=== PATIENT | male | born 1940 | race Caucasian/White ===

== ENCOUNTER → 2016-12-06 | Outpatient (CLI) | payer OTHER ==
[~2016-12-06] MED LIST: ASPI81 PO; FLOV44AE IN; LEVO75TA42 PO; LISI-363 PO; LORA10TA PO; PRIL20CA PO; VITATAB25 PO
[2016-12-06 07:54] LABS: BLOOD GAS BASE EXCESS -2.2 mmol/L (-2-2); BLOOD GAS CARBOXYHEMOGLOBIN 1.5 % (0-4); BLOOD GAS HCO3 22 mmol/L (22-26); BLOOD GAS O2 HGB SATURATION 96 % (90-100); BLOOD GAS PCO2 35 mmHG (38-42); BLOOD GAS PO2 89 mmHG (61-120); BLOOD GAS TOTAL HGB 14.8 G/DL (12.0-16.0); CRITICAL VALUE NO; OXYGEN DEVICE RA; TEMP CORR TO 98.6
[2016-12-06 07:55] LABS: DRAW SITE LT RADIAL; NUMBER OF ARTERIAL PUNCTURES 1; STAT NO; ULNAR PULSE Y
--- NOTE | 2016-12-07 10:48 | RSPPFT ---
DATE OF PROCEDURE: 02/05/17 COMMENTS: Spirometry shows FVC of 3.6 at 109% of predicted, FEV1 of 2.9 at 111%, FEV1/FVC ratio is normal. Flow is normal at FEF 25, FEF 50, FEF 75 and FEF 25-75. There is no response after bronchodilator treatment. Lung volumes show residual volume is mildly decreased. TLC is mildly decreased. Diffusion capacity is mildly decreased. Flow volume loop indicates a normal pattern. Room air arterial blood gases show pH of 7.4, PCO2 of 35, PO2 of 89, BiCarb of 22 and Saturation at 96%. IMPRESSION: 1. Normal spirometry. 2 No response after bronchodilator treatment. 3. Lung volumes are slightly decreased. 4. Mild decrease in diffusion capacity. 5. Blood gases show normal oxygenation on room air.
== END ==
LOC: PHRSP 07:22
PROVIDERS: ATTEND Specialist
DX: R06.00 Dyspnea, unspecified (principal)
CPT/HCPCS: 36600; 82805; 94060; 94726; 94729

== ENCOUNTER 2017-07-23 10:51 | Emergency (ER) | payer OTHER ==
[~2017-07-23] VITALS: Ht 175.3 cm; Wt 85.0 kg
[2017-07-23 10:55] VITALS: BP 136/78; PULSE 91; RESP 16; TEMP 97.7; O2SAT 96
[2017-07-23] MEDS ORDERED: SODIUM CHLOR 0.9% 1000 ML INJ 1,000 ML IV SCH (11:07)
[2017-07-23 11:10] VITALS: O2SAT 98
--- NOTE | 2017-07-23 11:11 | PD ---
HPI Chief Complaint: Abdominal Pain Time Seen by Provider: 11:02 Travel History International Travel<30 days: No Contact w/Intl Traveler<30days: No Traveled to known affect area: No History of Present Illness HPI 77-year-old male complains of left low quadrant abdominal pain. Patient states the symptoms started yesterday. Patient stated the pain is cramping pain localized to left lower quadrant of the abdomen. Patient states that the pain occasionally radiates to the left low back area. Patient denies any pain radiation. Patient denies any nausea vomiting diarrhea. Patient denied dysuria or frequency. Patient denies any fever chills. Patient has history of diverticulitis in the past. Patient status post partial colectomy secondary to diverticulitis. PFSH Past Medical History Arthritis: Yes Autoimmune Disease: No Cancer: No Cardiovascular Problems: Yes Diabetes: No Diminished Hearing: No Diverticulitis: Yes Endocrine: Yes GERD: Yes Genitourinary: No Hepatitis: No Hypertension: Yes Immune Disorder: No Musculoskeletal: Yes Neurologic: No Psychiatric: No Respiratory: No Immunizations Current: Yes Thyroid Disease: Yes Past Surgical History Abdominal Surgery: Yes (colon resection) Genitourinary Surgery: Yes (VASECTOMY) Joint Replacement: No Oral Surgery: Yes (T & A) Pacemaker: No Tonsillectomy: Yes Social History Alcohol Use: Yes (SOCIAL) Tobacco Use: No Substance Use: No Allergies-Medications (Allergen,Severity, Reaction): Coded Allergies: penicillin G (Verified Allergy, Severe, UNSURE, 07/23/17) levofloxacin (Verified Allergy, Mild, ITCHING, 07/23/17) benzonatate (Verified Allergy, Unknown, 07/23/17) cortisone (Verified Allergy, Unknown, flushing, 07/23/17) Reported Meds & Prescriptions Reported Meds & Active Scripts Active Reported Pantoprazole (Pantoprazole Sodium) 40 Mg Tab 40 Mg PO DAILY Aspirin Low Dose (Aspirin) 81 Mg Chew 81 Mg CHEW DAILY Lisinopril 30 Mg Tab 30 Mg PO DAILY Levoxyl (Levothyroxine Sodium) 75 Mcg Tab 75 Mcg PO DAILY Review of Systems General / Constitutional: No: Fever Eyes: No: Visual changes HENT: No: Headaches Cardiovascular: No: Chest Pain or Discomfort Respiratory: No: Shortness of Breath Gastrointestinal: Positive: Abdominal Pain Genitourinary: No: Dysuria Musculoskeletal: No: Pain Skin: No Rash Neurologic: No: Weakness Psychiatric: No: Depression Endocrine: No: Polydipsia Hematologic/Lymphatic: No: Easy Bruising Physical Exam Narrative GENERAL: Well-nourished, well-developed patient. SKIN: Focused skin assessment warm/dry. HEAD: Normocephalic. EYES: No scleral icterus. No injection or drainage. NECK: Supple, trachea midline. No JVD or lymphadenopathy. CARDIOVASCULAR: Regular rate and rhythm without murmurs, gallops, or rubs. RESPIRATORY: Breath sounds equal bilaterally. No accessory muscle use. GASTROINTESTINAL: Abdomen soft, nondistended. Patient has moderate tenderness on palpation left low quadrant of the abdomen. No rebound tenderness. No mass. MUSCULOSKELETAL: No cyanosis, or edema. BACK: Nontender without obvious deformity. No CVA tenderness. Neurologic exam normal. Data Data Last Documented VS Vital Signs Date Time Temp Pulse Resp B/P (MAP) Pulse Ox O2 Delivery O2 Flow Rate FiO2 07/23/17 12:22 72 16 152/76 (101) 98 Room Air 07/23/17 10:55 97.7 Orders Orders Complete Blood Count With Diff (07/23/17 11:07) Comprehensive Metabolic Panel (07/23/17 11:07) Lipase (07/23/17 11:07) Prothrombin Time / Inr (Pt) (07/23/17 11:07) Act Partial Throm Time (Ptt) (07/23/17 11:07) Urinalysis - C+S If Indicated (07/23/17 11:07) Ct Abd/Pel W Iv Contrast(Rout) (07/23/17 11:07) Iv Access Insert/Monitor (07/23/17 11:07) Ecg Monitoring (07/23/17 11:07) Oximetry (07/23/17 11:07) Ondansetron Inj (Zofran Inj) (07/23/17 11:15) Sodium Chlor 0.9% 1000 Ml Inj (Ns 1000 M (07/23/17 11:07) Sodium Chloride 0.9% Flush (Ns Flush) (07/23/17 11:15) Morphine Inj (Morphine Inj) (07/23/17 11:15) Iohexol 350 Inj (Omnipaque 350 Inj) (07/23/17 12:19) Labs Laboratory Tests Test 07/23/17 11:15 07/23/17 12:00 White Blood Count 7.1 TH/MM3 Red Blood Count 4.97 MIL/MM3 Hemoglobin 14.3 GM/DL Hematocrit 43.8 % Mean Corpuscular Volume 88.1 FL Mean Corpuscular Hemoglobin 28.8 PG Mean Corpuscular Hemoglobin Concent 32.7 % Red Cell Distribution Width 13.3 % Platelet Count 251 TH/MM3 Mean Platelet Volume 7.8 FL Neutrophils (%) (Auto) 58.7 % Lymphocytes (%) (Auto) 22.6 % Monocytes (%) (Auto) 10.7 % Eosinophils (%) (Auto) 7.1 % Basophils (%) (Auto) 0.9 % Neutrophils # (Auto) 4.1 TH/MM3 Lymphocytes # (Auto) 1.6 TH/MM3 Monocytes # (Auto) 0.8 TH/MM3 Eosinophils # (Auto) 0.5 TH/MM3 Basophils # (Auto) 0.1 TH/MM3 CBC Comment DIFF FINAL Differential Comment Prothrombin Time 10.8 SEC Prothromb Time International Ratio 1.1 RATIO Activated Partial Thromboplast Time 26.8 SEC Blood Urea Nitrogen 15 MG/DL Creatinine 1.00 MG/DL Random Glucose 111 MG/DL Total Protein 7.5 GM/DL Albumin 3.5 GM/DL Calcium Level 8.8 MG/DL Alkaline Phosphatase 82 U/L Aspartate Amino Transf (AST/SGOT) 20 U/L Alanine Aminotransferase (ALT/SGPT) 23 U/L Total Bilirubin 0.4 MG/DL Sodium Level 141 MEQ/L Potassium Level 3.9 MEQ/L Chloride Level 106 MEQ/L Carbon Dioxide Level 25.5 MEQ/L Anion Gap 10 MEQ/L Estimat Glomerular Filtration Rate 73 ML/MIN Lipase 159 U/L Urine Collection Type CLEAN CATCH Urine Color YELLOW Urine Turbidity CLEAR Urine pH 6.5 Urine Specific [place] 1.023 Urine Protein NEG mg/dL Urine Glucose (UA) NEG mg/dL Urine Ketones NEG mg/dL Urine Occult Blood NEG Urine Nitrite NEG Urine Bilirubin NEG Urine Leukocyte Esterase NEG Urine Squamous Epithelial Cells 0-5 /hpf Microscopic Urinalysis Comment CULT NOT INDICATED MDM Medical Decision Making Medical Screen Exam Complete: Yes Emergency Medical Condition: Yes Interpretation(s) Last Impressions Abdomen/Pelvis CT 07/23/17 1107 Signed Impressions: Service Date/Time: Sunday, July 23, 2017 12:06 - CONCLUSION: Prior surgery of the sigmoid colon. Uncomplicated diverticuli of the descending and sigmoid colon. Otherwise negative. Jovan Gould MD 12:38 PM. CBC within normal limit. CMP within normal limit. UA is negative. Differential Diagnosis Differential diagnoses including diverticulitis, UTI, pyelonephritis, nephrolithiasis. Narrative Course 77-year-old male complains of left low quadrant abdominal pain. History of diverticulitis in the past. Normal saline solution 1 25 cc an hour. Morphine 2 mg IV. Zofran 4 mg IV. Patient refused morphine and Zofran. 12:42 PM. CBC CMP and CT scan abdomen pelvis negative acute pathology. Patient has persistent left low quadrant abdominal pain. Differential diagnosis including diverticulitis versus adhesion pain. Diagnosis Primary Impression: Abdominal pain Qualified Codes: R10.32 - Left lower quadrant pain Patient Instructions: General Instructions Additional Instructions: Take medication as directed. Tylenol for pain. Follow-up with personal physician. Return if worse. Med/Other Pt SpecificInfo: Prescription(s) given Scripts Metronidazole (Flagyl) 500 Mg Tab 500 MG PO TID for Infection, #21 TAB 0 Refills Prov: Hubert Son MD 07/23/17 Disposition: 01 DISCHARGE HOME Condition: Stable Hubert Son MD Jul 23, 2017 11:11
[2017-07-23] MEDS ORDERED: MORPHINE SULFATE 2 MG/ML INJ IV PUSH ONE (11:15)
[2017-07-23] MEDS ORDERED: ONDANSETRON HCL 4 MG/2 ML VIAL IVP ONE (11:15)
[2017-07-23] MEDS ORDERED: SODIUM CHLORIDE 0.9% FLUSH 10 ML FLUSH IV FLUSH PRN (11:15)
[2017-07-23 11:31] LABS: AUTOMATED NEUTROPHIL # 4.1 TH/MM3 (1.8-7.7); BASOPHIL # 0.1 TH/MM3 (0-0.2); BASOPHIL % 0.9 % (0.0-2.0); EOSINOPHIL # 0.5 TH/MM3 (0-0.4); EOSINOPHIL % 7.1 % (0.0-4.0); HEMATOCRIT 43.8 % (39.0-51.0); HEMOGLOBIN 14.3 GM/DL (13.0-17.0); LYMPH % 22.6 % (9.0-44.0); LYMPHOCYTE # 1.6 TH/MM3 (1.0-4.8); MEAN CELL VOLUME 88.1 FL (80.0-100.0); MEAN CORPUSCULAR HEMOGLOBIN 28.8 PG (27.0-34.0); MEAN CORPUSCULAR HGB CONC 32.7 % (32.0-36.0); MEAN PLATELET VOLUME 7.8 FL (7.0-11.0); MONO % 10.7 % (0.0-8.0); MONOCYTE # 0.8 TH/MM3 (0-0.9); NEUT % 58.7 % (16.0-70.0); PLATELET COUNT 251 TH/MM3 (150-450); RED BLOOD COUNT 4.97 MIL/MM3 (4.50-5.90); RED CELL DISTRIBUTION WIDTH 13.3 % (11.6-17.2); WHITE BLOOD COUNT 7.1 TH/MM3 (4.0-11.0)
[2017-07-23 11:44] LABS: CHLORIDE 106 MEQ/L (98-107); SODIUM (NA) 141 MEQ/L (136-145)
[2017-07-23 11:47] LABS: ALBUMIN 3.5 GM/DL (3.4-5.0); BICARBONATE 25.5 MEQ/L (21.0-32.0); BLOOD UREA NITROGEN 15 MG/DL (7-18); CALCIUM 8.8 MG/DL (8.5-10.1); GLUCOSE,RANDOM 111 MG/DL (74-106)
[2017-07-23] MEDS ORDERED: LISI30TA4 PO (11:47)
[2017-07-23] MEDS ORDERED: LEVO75TA43 PO (11:47)
[2017-07-23] MEDS ORDERED: PANT40TA3 PO (11:47)
[2017-07-23] MEDS ORDERED: ASPI81CH6 CHEW (11:47)
[2017-07-23 11:48] LABS: INTERNATIONAL NORMALIZED RATIO 1.1 RATIO; PROTHROMBIN TIME - PATIENT 10.8 SEC (9.8-11.6)
[2017-07-23 11:50] LABS: ALT (GPT) 23 U/L (12-78); AST (GOT) 20 U/L (15-37); GLOMERULAR FILTRATION RATE 73 ML/MIN (>89)
[2017-07-23 11:51] LABS: TOTAL BILIRUBIN ADULT 0.4 MG/DL (0.2-1.0)
[2017-07-23 11:52] LABS: TOTAL PROTEIN 7.5 GM/DL (6.4-8.2)
[2017-07-23 11:53] LABS: ALKALINE PHOSPHATASE 82 U/L (45-117)
[2017-07-23 12:12] LABS: BILIRUBIN, URINE NEG (NEG); BLOOD, URINE NEG (NEG); GLUCOSE,URINE NEG (NEG); KETONE, URINE NEG (NEG); NITRITE,URINE NEG (NEG); PH, URINE 6.5 (5.0-8.5); URINE LEUKOCYTE ESTERASE NEG (NEG)
[2017-07-23 12:13] LABS: URINE COLOR YELLOW (YELLW/STRAW)
[2017-07-23] MEDS ORDERED: IOHEXOL 350 MG/ML 10 ML VIAL (for RAD DIAG) IVCONTRAST ONE (12:19)
[2017-07-23 12:20] LABS: SQUAMOUS EPITHELIAL CELL URINE 0-5 /hpf (0-5)
[2017-07-23 12:22] VITALS: BP 152/76; PULSE 72; RESP 16; O2SAT 98
--- NOTE | 2017-07-23 12:28 | RADRPT ---
EXAM DATE/TIME: 07/23/2017 12:06 [facility] COMPARISON: No previous studies available for comparison. INDICATIONS : Left lower abdominal pain. IV CONTRAST: 100 cc Omnipaque 350 (iohexol) IV ORAL CONTRAST: No oral contrast ingested. RADIATION DOSE: 13.39 CTDIvol (mGy) MEDICAL HISTORY : Diverticulitis. Hypertension. 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 Tonsillectomy. ENCOUNTER: Initial ACUITY: 3 days PAIN SCALE: 2/10 LOCATION: Left lower quadrant TECHNIQUE: Volumetric scanning of the abdomen and pelvis was performed. Using automated exposure control and adjustment of the mA and/or kV according to patient size, radiation dose was kept as low as reasonably achievable to obtain optimal diagnostic quality images. DICOM format image data is av ailable electronically for review and comparison. FINDINGS: LOWER LUNGS: The visualized lower lungs are clear. LIVER: Homogeneous density without lesion. There is no dilation of the biliary tree. No calcifi ed gallstones. Gallbladder since luminal structure without wall thickening SPLEEN: Normal size without lesion. PANCREAS: Within normal limits. KIDNEYS: Normal in size and shape. There is no mass, stone or hydronephrosis. ADRENAL GLANDS: Within normal limits. VASCULAR: There is no aortic aneurysm. BOWEL/MESENTERY: The stomach, small bowel, and colon demonstrate no acute abnormality. There is no free intraperitoneal air or fluid. Scattered diverticuli are appreciated descending and sigmoid co kayleigh. These are uncomplicated. Appendix is visualized and is normal. There is circumferential surgical clips around the mid sigmoid consistent with prior surgery ABDOMINAL WALL: Within normal limits. RETROPERITONEUM: There is no lymphadenopathy. BLADDER: No wall thickening or mass. REPRODUCTIVE: Within normal limits. INGUINAL: There is no lymphadenopathy or hernia. MUSCULOSKELETAL: Within normal limits for patient age. CONCLUSION: Prior surgery of the sigmoid colon. Uncomplicated diverticuli of the descending and s igmoid colon. Otherwise negative. Jovan Gould MD on July 23, 2017 at 12:21 Board Certified Radiologist. This report was verified electronically.
[2017-07-23] MEDS ORDERED: METR-1 PO (12:43)
[2017-07-23 12:54] VITALS: BP 136/76
== END 2017-07-23 12:58 | disposition home or self-care (01) ==
LOC: PHED 10:51
DX: R10.32 Left lower quadrant pain (principal); K21.9 Gastro-esophageal reflux disease without esophagitis; I10 Essential (primary) hypertension; Z88.0 Allergy status to penicillin; Z90.49 Acquired absence of other specified parts of digestive tract
CPT/HCPCS: 74177; 80053; 81001; 83690; 85025; 85610; 85730; 96360; 99284; J7030; Q9967